=== PATIENT | female | born 1960 | race Two or more races ===

== ENCOUNTER 2017-07-18 05:47 | Emergency (ER) | payer OTHER ==
[~2017-07-18] VITALS: Ht 157.5 cm; Wt 95.3 kg
[~2017-07-18 05:47] MED LIST: KEFLEX500 MG ORAL
[2017-07-18] MEDS ORDERED: NKM (06:01)
[2017-07-18 06:06] VITALS: BP 142/85
[2017-07-18] MEDS ORDERED: Meclizine 25mg tab ORAL ONE ×2 (06:15→07:30)
--- NOTE | 2017-07-18 06:15 | Emergency Room Report ---
History of Present Illness General Chief Complaint: Dizziness Source: Patient Present Illness HPI Patient is a 56-year-old female who presented after increased vertigo sensation. Patient reports having acute onset of symptoms starting this morning. Patient reports having increased popping sensation to her right ear. Patient states that she had been feeling increasingly congested. She denies prior history of diabetes. She denies severe headache. She reports having worsened dizziness with movements. Allergies: Coded Allergies: NO KNOWN ALLERGIES (Unverified Allergy, Unknown, 07/18/17) Patient History Past Medical History: see triage record Last Menstrual Period: n/a Now: No Reviewed Nursing Documentation: PMH: Agreed; PSxH: Agreed Nursing Documentation-PMH Past Medical History: No Stated History Review of Systems All Other Systems: negative except mentioned in HPI Physical Exam Vital Signs Date Time Temp Pulse Resp B/P (MAP) Pulse Ox O2 Delivery O2 Flow Rate FiO2 07/18/17 05:54 97.8 70 16 162/84 99 Room Air 97.9 Sp02 EP Interpretation: reviewed, normal General Appearance: normal inspection, well appearing, alert, GCS 15, mild distress Head: normocephalic, atraumatic Eyes: bilateral eye PERRL, bilateral eye other - nystagmus with leftward gaze ENT: normal ENT inspection, hearing grossly normal, normal voice Neck: normal inspection, full range of motion, supple, no bony tend Respiratory: normal inspection, lungs clear, normal breath sounds, no respiratory distress, no retraction, no wheezing Cardiovascular #1: regular rate, rhythm, no edema Gastrointestinal: normal inspection, normal bowel sounds, non tender, soft, no guarding, no hernia Genitourinary: no CVA tenderness Musculoskeletal: normal inspection, back normal, normal range of motion Neurologic: normal inspection, alert, responsive, risk control analyst III-XII nml as tested, motor strength/tone normal, cerebellar normal, speech normal Psychiatric: normal inspection, judgement/insight normal, mood/affect normal Skin: normal inspection, normal color, no rash Medical Decision Making Diagnostic Impression: Primary Impression: Vertigo ER Course Patient presented for dizziness. Differential diagnosis included was not limited to CVA, vertebrobasilar insufficiency, myocardial infarction, benign positional vertigo, labyrinthitis, aspirin overdose among others. The patient has exam consistent with peripheral vertigo likely do to benign positional vertigo. Patient was given oral meclizine. Patient had some improvement in symptoms. The patient was noted to have some risk factors for CVA and CT head was ordered. CT head read by radiology showed no evidence of acute CVA. Laboratory testing was ordered and the currently pending. Patient will likely be discharged to laboratory testing is normal. Patient was endorsed to Dr. Dunn pending labs. Last Vital Signs Date Time Temp Pulse Resp B/P (MAP) Pulse Ox O2 Delivery O2 Flow Rate FiO2 07/18/17 05:54 97.8 70 16 162/84 99 Room Air 97.9 Status: improved Disposition: HOME, SELF-CARE Condition: Stable Scripts Meclizine Hcl* (MECLIZINE*) 25 Mg Tablet 25 MG ORAL THREE TIMES A DAY, #30 TAB Prov: Gama Dunn MD 07/18/17 Daryn Rodriguez July 18, 2017 06:14
[2017-07-18 07:29] VITALS: BP 129/59
[2017-07-18 08:01] LABS: BASOPHILS % (AUTO) 1.2 % (0.0-2.0); EOSINOPHILS % (AUTO) 2.1 % (0.0-3.0); HEMATOCRIT 41.5 % (37.0-47.0); HEMOGLOBIN 13.6 G/DL (12.0-16.0); LYMPHOCYTES % (AUTO) 45.1 % (20.0-45.0); MEAN CORPUSCULAR VOLUME 88 FL (80-99); MONOCYTES % (AUTO) 9.6 % (1.0-10.0); PLATELET COUNT 277 K/UL (150-450); RED CELL DISTRIBUTION WIDTH 12.6 % (11.6-14.8); WHITE BLOOD COUNT 9.3 K/UL (4.8-10.8)
[2017-07-18 08:05] LABS: ANION GAP 7 mmol/L (5-15); BLOOD UREA NITROGEN 16 mg/dL (7-18); CALCIUM 8.9 MG/DL (8.5-10.1); CARBON DIOXIDE 28 MMOL/L (21-32); CHLORIDE 104 MMOL/L (98-107); CREATININE 0.8 MG/DL (0.55-1.30); POTASSIUM 3.8 MMOL/L (3.5-5.1); SODIUM 139 MMOL/L (136-145)
[2017-07-18 08:10] LABS: ALANINE AMINOTRANSFERASE 24 U/L (12-78); ALBUMIN 3.7 G/DL (3.4-5.0); ALBUMIN/GLOBULIN RATIO 0.8 (1.0-2.7); ALKALINE PHOSPHATASE 105 U/L (46-116); ASPARTATE AMINO TRANSFERASE 16 U/L (15-37); BILIRUBIN,TOTAL 0.4 MG/DL (0.2-1.0)
[2017-07-18] MEDS ORDERED: MECLIZINE HCL25 MG ORAL (08:27)
[2017-07-18 09:13] VITALS: BP 124/82
== END 2017-07-18 09:15 | disposition home or self-care (01) ==
LOC: EMR 06:15
DX: R42 Dizziness and giddiness (principal)
CPT/HCPCS: 36415; 70450; 80053; 85025; 96374; 99283; J2405